=== PATIENT | male | born 1990 | race Caucasian/White ===

== ENCOUNTER 2018-11-14 15:06 | Emergency (ER) | payer OTHER ==
[~2018-11-14] VITALS: Ht 180.3 cm; Wt 77.1 kg
[2018-11-14] MEDS ORDERED: AUGMENTIN 875-1 EACH PO (16:57)
[2018-11-14] MEDS ORDERED: NABUMETONE 750750 M1 PO (16:57)
[2018-11-14 17:09] VITALS: BP 114/79
== END 2018-11-14 17:08 | disposition home or self-care (01) ==
LOC: M.ERS 15:06
DX: K12.2 Cellulitis and abscess of mouth (principal); F17.210 Nicotine dependence, cigarettes, uncomplicated